=== PATIENT | female | born 1955 | race Hispanic/Latino ===

== ENCOUNTER 2019-01-15 13:00 | Outpatient (RCR) | payer OTHER | END 2019-01-18 | LOC: PT 13:00 | PROVIDERS: ATTEND Orthopaedic Surgery Adult Reconstructive Orthopaedic Surgery | DX: Z96.651 Presence of right artificial knee joint (principal) ==

== ENCOUNTER 2019-02-14 13:00 | Outpatient (RCR) | payer OTHER ==
[~2019-02-14 13:00] MED LIST: LORAZEPAM INJ 2 MG/ML VIAL ONE
== END 2019-02-17 ==
LOC: PT 13:00
PROVIDERS: ATTEND Orthopaedic Surgery Adult Reconstructive Orthopaedic Surgery
DX: Z96.651 Presence of right artificial knee joint (principal); M62.81 Muscle weakness (generalized); R26.2 Difficulty in walking, not elsewhere classified; M25.561 Pain in right knee; M25.661 Stiffness of right knee, not elsewhere classified
CPT/HCPCS: 97139; J2060

== ENCOUNTER 2019-07-18 13:00 | Outpatient (RCR) | payer OTHER | END 2019-07-19 | LOC: PT 13:00 | PROVIDERS: ATTEND Nurse Practitioner | DX: Z96.652 Presence of left artificial knee joint (principal); R26.2 Difficulty in walking, not elsewhere classified; M62.81 Muscle weakness (generalized); M25.562 Pain in left knee; M25.662 Stiffness of left knee, not elsewhere classified ==

== ENCOUNTER 2019-07-28 13:00 | Outpatient (RCR) | payer OTHER | END 2019-08-19 | LOC: PT 13:00 | PROVIDERS: ATTEND Nurse Practitioner | DX: Z96.652 Presence of left artificial knee joint (principal); R26.2 Difficulty in walking, not elsewhere classified | CPT/HCPCS: 97139 ==